=== PATIENT | female | born 1970 | race Two or more races ===

== ENCOUNTER 2021-09-06 13:25 | Emergency (ER) | payer SELFPAY ==
[~2021-09-06] VITALS: Ht 180.3 cm; Wt 152.4 kg
[2021-09-06 15:49] VITALS: BP 149/78
== END 2021-09-06 16:06 | disposition home or self-care (01) ==
LOC: ER 13:25
DX: J20.9 Acute bronchitis, unspecified (principal); J45.909 Unspecified asthma, uncomplicated; Z20.822 Contact with and (suspected) exposure to COVID-19
CPT/HCPCS: 36415; 87426